=== PATIENT | male | born 1925 | race Caucasian/White ===

== ENCOUNTER 2016-10-30 08:32 | Emergency (ER) | payer MEDICARE, BC, OTHER ==
[2016-10-30] MEDS ORDERED: POTASSIUM CHLO10 ME2 PO (08:49)
[2016-10-30] MEDS ORDERED: ASPIR-LOW81 M1 PO (08:49)
[2016-10-30] MEDS ORDERED: SIMVASTATIN40 M1 PO (08:49)
[2016-10-30] MEDS ORDERED: COREG25 M1 PO (08:50)
[2016-10-30] MEDS ORDERED: LASIX40 M1 PO (08:50)
[2016-10-30] MEDS ORDERED: VITAMIN D-32000 UNI4 PO (08:51)
[2016-10-30] MEDS ORDERED: FLOMAX0.4 M1 PO (08:51)
[2016-10-30] MEDS ORDERED: FINASTERIDE5 M2 PO (08:51)
[2016-10-30] MEDS ORDERED: PRINIVIL20 M1 PO (08:51)
[2016-10-30] MEDS ORDERED: COUMADIN2 M1 PO (08:52)
[2016-10-30] MEDS ORDERED: TRAMADOL HCL50 M2 PO (08:55)
== END 2016-10-30 09:03 ==
LOC: EDMED 08:32
DX: M16.11 Unilateral primary osteoarthritis, right hip (principal); I48.91 Unspecified atrial fibrillation; I10 Essential (primary) hypertension; Z95.1 Presence of aortocoronary bypass graft; Z98.890 Other specified postprocedural states; Z79.82 Long term (current) use of aspirin; Z79.01 Long term (current) use of anticoagulants; Z79.899 Other long term (current) drug therapy